=== PATIENT | male | born 1945 | race Caucasian/White ===

== ENCOUNTER → 2017-07-06 | Outpatient (CLI) | payer MEDICARE, BC ==
[2006-01-26 10:20] VITALS: TEMP 98
== END ==
LOC: COL.RAD 13:53
DX: M21.70 Unequal limb length (acquired), unspecified site (principal)

== ENCOUNTER 2017-08-12 14:30 | Outpatient (RCR) | payer MEDICARE, BC ==
[2006-01-26 10:20] VITALS: TEMP 98
== END 2017-08-18 ==
LOC: MKS.ESL.PT
DX: M25.561 Pain in right knee (principal); R26.89 Other abnormalities of gait and mobility; M21.70 Unequal limb length (acquired), unspecified site
CPT/HCPCS: G8981-GP; G8982-GP